=== PATIENT | female | born 2000 | race Caucasian/White ===

== ENCOUNTER 2023-11-13 16:47 | Emergency (ER) | payer OTHER, SELFPAY ==
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
[2023-11-13 17:01] VITALS: BP 142/71; PULSE 61; RESP 14; TEMP 36.2; O2SAT 100
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
[2023-11-13] MEDS: IBUPROFEN 400 MG TABLET 800 MG PO (20:12)
[2023-11-13] MEDS: CYCLOBENZAPRINE HCL 10 MG TABLET PO (20:12)
[2023-11-13] MEDS: ACETAMINOPHEN 500 MG TABLET 1000 MG PO (20:13)
[2023-11-13 20:41] VITALS: TEMP 36.4
== END 2023-11-13 20:42 | disposition home or self-care (01) ==
PROVIDERS: Emergency Provider Physician Assistant
DX: S16.1XXA Strain of muscle, fascia and tendon at neck level, initial encounter (principal); V43.53XA Car driver injured in collision with pick-up truck in traffic accident, initial encounter
CPT/HCPCS: 70450; 72125; 73030; 99284; A9270